=== PATIENT | female | born 1965 | race Caucasian/White ===

== ENCOUNTER → 2017-01-28 | Outpatient (CLI) | payer OTHER ==
--- NOTE | 2017-01-28 15:58 | RAD ---
DATE: 01/28/2017 EXAM: DIGITAL DIAGNOSTIC BILATERAL HISTORY: Previous breast lump COMPARISON: 08/24/2015, 07/06/2014 This study was interpreted with the benefit of Computerized Aided Detection (CAD). FINDINGS: The breasts are heterogeneously dense. The patient cannot pinpoint an area of palpable concern at this time. No new or enlarging breast densities are seen. Minimal benign type calcifications are again noted.. No suspicious microcalcifications are seen. Benign-appearing lymph node type densities are present in the axillary regions. IMPRESSION: Stable mammograms without evidence of malignancy. Routine yearly follow-up mammographic surveillance is suggested. Left breast ultrasound, 01/28/2017: The entire left breast was scanned. At the 12:00 location approximately 3 cm from the nipple there is a smooth oval-shaped nodule. It is relatively isoechoic relative to the subcutaneous fat. It measures 7 x 5 x 6 mm. No internal color flow is seen. It is wider than tall. This most likely represents a small fibroadenoma. A complicated cyst could also give this appearance. No other sonographic abnormality was identified in the left breast. IMPRESSION: Probably benign small nodule at the 12:00 location in the left breast as described above. Sonographic surveillance beginning in 6 months is suggested for confirmation. BI-RADS CATEGORY: 3 PROBABLY BENIGN FINDING(S)-SHORT INTERVAL SONOGRAPHIC FOLLOW-UP SUGGESTED RECOMMENDED FOLLOW-UP: 6M 6 MONTH FOLLOW-UP PQRS compliance statement: Patient information was entered into a reminder system with a target due date for the next mammogram. Mammography is a sensitive method for finding small breast cancers, but it does not detect them all and is not a substitute for careful clinical examination. A negative mammogram does not negate a clinically suspicious finding and should not result in delay in biopsying a clinically suspicious abnormality. "Our facility is accredited by the [employer] Mammography [employer]."
== END | disposition home or self-care (01) ==
LOC: KCIC MAMMO 14:01
PROVIDERS: ATTEND Advanced Practice Midwife
DX: R92.8 Other abnormal and inconclusive findings on diagnostic imaging of breast (principal)
CPT/HCPCS: 76641; G0204; 77066